=== PATIENT | female | born 1975 | race Caucasian/White ===

== ENCOUNTER → 2020-10-18 09:59 | Outpatient (BNVA) | payer OTHER, SELFPAY | PROVIDERS: PCP Nurse Practitioner Family; Visit Provider Orthopaedic Surgery | DX: R20.0 Anesthesia of skin (principal); R20.2 Paresthesia of skin | CPT/HCPCS: 99202 ==

== ENCOUNTER 2020-10-20 10:02 | Outpatient (REF) | payer OTHER, SELFPAY ==
--- NOTE | 2020-10-20 13:44 | EMG_ITS ---
HISTORY OF PRESENT ILLNESS: This is a 44-year-old woman with bilateral hand pain and numbness with the right being worse than the left, that has been going on for 2 or 3 months. She has no other medical problems and takes no medications. PHYSICAL EXAMINATION: On examination, she is alert and oriented with normal intellectual functions. Cranial nerves II through XII are normal. Muscle tone and strength are normal in all 4 extremities. No Tinel or Phalen sign. IMPRESSION: Rule out carpal tunnel syndrome. Nerve conduction EMG study: Early carpal tunnel syndrome on the right, otherwise normal study. Normal EMG of the right C7-T1 innervated muscles. MD FRIDA Leon/KEELY / [id number]
== END 2020-10-20 10:03 | disposition home or self-care (01) ==
LOC: HO.NEURO 10:02
PROVIDERS: PCP General Practice; Visit Provider General Practice
DX: G56.03 Carpal tunnel syndrome, bilateral upper limbs (principal)
CPT/HCPCS: 95860

== ENCOUNTER → 2020-10-28 12:26 | Outpatient (BNVA) | payer OTHER, SELFPAY | PROVIDERS: PCP Nurse Practitioner Family; Visit Provider Orthopaedic Surgery | DX: G56.01 Carpal tunnel syndrome, right upper limb (principal) | CPT/HCPCS: 99212 ==

== ENCOUNTER 2020-10-28 13:17 | Outpatient (REF) | payer OTHER, SELFPAY | END 2020-10-28 13:18 | disposition home or self-care (01) | LOC: HO.LAB 13:17 | PROVIDERS: Visit Provider Internal Medicine | DX: Z20.822 Contact with and (suspected) exposure to COVID-19 (principal) | CPT/HCPCS: 36415; C9803; U0003 ==

== ENCOUNTER 2021-05-16 15:27 | Outpatient (REF) | payer OTHER, SELFPAY ==
--- NOTE | ~2021-05-16 | MM_ITS ---
EXAMINATION: MM SCREENING DIGITAL BREAST TOMOSYNTHESIS, BILATERAL CLINICAL INFORMATION: Screening. Asymptomatic. The lifetime risk of breast cancer based on the Tyrer-Cuzick Model is 10%. COMPARISON: Mammography: 01/18/2019, 03/15/2017, 01/24/2016, 01/13/2016 TECHNIQUE: Digital breast tomosynthesis is performed in both the craniocaudal and mediolateral oblique views along with computer-aided detection (CAD). Synthesized 2D images are generated from the tomosynthesis. FINDINGS: There are scattered areas of fibroglandular density (ACR BI-RADS breast composition Category b). There are no significant masses, abnormal calcifications, or other abnormalities. Parenchymal pattern is similar to prior studies. No developing density. The axilla and skin contours are unremarkable. MM/MM tomosynthesis screening BI IMPRESSION: No mammographic evidence of malignancy. ASSESSMENT: BI-RADS 1: Negative RECOMMENDATION: Routine annual mammography screening. This patient's information was entered into a reminder system with a target due date for their next mammogram.
== END 2021-05-16 15:28 | disposition home or self-care (01) ==
LOC: HO.MAMMO 15:27
PROVIDERS: Visit Provider General Practice
DX: Z12.31 Encounter for screening mammogram for malignant neoplasm of breast (principal)
CPT/HCPCS: 77063; 77067

== ENCOUNTER 2021-06-02 15:54 | Outpatient (REF) | payer OTHER, SELFPAY ==
--- NOTE | ~2021-06-02 | US_ITS ---
EXAMINATION: US PELVIS CLINICAL INFORMATION: Heavy bleeding. Please evaluate for polyps. COMPARISON: None TECHNIQUE: Ultrasound of the pelvis is performed using both transabdominal and transvaginal transducers along with Doppler. Transvaginal imaging is performed due to inadequate visualization transabdominally. FINDINGS: The uterus is anteverted and anteflexed measuring 11.8 cm in length, 5.2 cm in AP and 7.6 cm in transverse dimension. The endometrial thickness is 2.0 cm. The uterus is homogeneous in echotexture. There are small anechoic nabothian cysts in the cervix. The right ovary measures 3.8 x 2.1 x 3.8 cm and volume 15.9 mL volume. It appears unremarkable. The left ovary measures 2.7 x 2.3 x 1.9 cm and volume 6.2 mL. It appears unremarkable. Both ovaries are seen transabdominally. There is no free fluid in the cul-de-sac. US/US pelvic and transvaginal IMPRESSION: Small nabothian cysts in the cervix. Mild thickness of the endometrium measuring 2.0 cm. Otherwise the uterus is unremarkable.
== END 2021-06-02 15:55 | disposition home or self-care (01) ==
LOC: HO.US 15:54
PROVIDERS: Visit Provider General Practice
DX: N88.9 Noninflammatory disorder of cervix uteri, unspecified (principal)
CPT/HCPCS: 76830; 76856

== ENCOUNTER → 2021-06-15 16:06 | Outpatient (REF) | payer OTHER, SELFPAY | LOC: HO.SL 16:06 | PROVIDERS: PCP General Practice; Visit Provider General Practice | DX: G47.9 Sleep disorder, unspecified (principal) | CPT/HCPCS: 95806 ==

== ENCOUNTER 2021-08-18 09:35 | Outpatient (REF) | payer OTHER, SELFPAY | END 2021-08-18 09:36 | disposition home or self-care (01) | LOC: HO.LAB 09:35 | PROVIDERS: PCP General Practice; Visit Provider Obstetrics & Gynecology | DX: N88.9 Noninflammatory disorder of cervix uteri, unspecified (principal) | CPT/HCPCS: 57500; 88305 ==

== ENCOUNTER → 2021-08-25 13:32 | Outpatient (BNVA) | payer OTHER, SELFPAY | PROVIDERS: PCP General Practice; Visit Provider Surgery Vascular Surgery | DX: I83.11 Varicose veins of right lower extremity with inflammation (principal) | CPT/HCPCS: 99202 ==

== ENCOUNTER → 2021-09-12 10:47 | Outpatient (BNVA) | payer OTHER, SELFPAY | PROVIDERS: PCP General Practice; Visit Provider Obstetrics & Gynecology | DX: N88.9 Noninflammatory disorder of cervix uteri, unspecified (principal) | CPT/HCPCS: 99212 ==

== ENCOUNTER 2021-09-13 08:10 | Outpatient (REF) | payer OTHER, SELFPAY ==
--- NOTE | ~2021-09-13 | US_ITS ---
EXAMINATION: BILATERAL LOWER EXTREMITY VENOUS ULTRASOUND (Reflux Exam) CLINICAL INDICATION: This a 45-year-old female with venous insufficiency and reflux. Varicose veins. COMPARISON: None. TECHNIQUE: Color flow triplex imaging and compression Doppler was performed to evaluate both the deep and the superficial systems bilaterally. To evaluate the superficial system, the examination was performed in the upright position. Color-flow Doppler ultrasound and compression ultrasound were utilized. In addition, maneuvers were utilized to demonstrate reflux. FINDINGS: 1. DEEP VENOUS ULTRASOUND OF THE RIGHT LOWER EXTREMITY: Common Femoral Vein: Compressible, normal respiratory variation and augmented flow. Femoral vein: Compressible, normal color flow and augmentation. Popliteal Vein: Compressible, normal augmentation. Deep Reflux: There is no evidence of reflux in the deep system in either the common femoral vein or the popliteal vein. . There is no evidence of a Dobson's cyst. 2. SUPERFICIAL ULTRASOUND WITH DOPPLER OF RIGHT LOWER EXTREMITY GREAT SAPHENOUS VEIN: Saphenofemoral junction: 0.6 cm. There is no reflux. Mid thigh: 0.4 cm. There is no reflux. Above knee: 0.3 cm. There is no reflux. Below knee: 0.2 cm. There is no reflux. Mid calf: 0.3 cm. The reflux time is 2356 ms. Ankle: 0.3 cm. The reflux time is 2900 ms. GSV REFLUX: There is isolated distal calf reflux. There is no reflux at the junction. DUPLICATED GREAT SAPHENOUS VEIN: There is a 0.3 cm located lateral great saphenous vein without evidence of reflux. SMALL SAPHENOUS VEIN: Upper: 0.1 cm Lower: 0.1 cm SSV REFLUX: No evidence of reflux. VEIN OF GIACOMINI: None Imaged. PERFORATORS: There are 0.2 cm distal thigh and knee perforators without reflux. VARICOSITIES: There are varicosities which measure 0.1 cm and 0.2 cm seen in the thigh and popliteal fossa and chin. There is greater than 3 seconds of reflux in these varicose veins. 3. DEEP VENOUS ULTRASOUND OF THE LEFT LOWER EXTREMITY: Common Femoral Vein: Compressible, normal respiratory variation and augmented flow. Femoral vein: Compressible, normal color flow and augmentation. Popliteal Vein: Compressible, normal augmentation. Deep Reflux: There is no evidence of reflux in the deep system in either the common femoral vein or the popliteal vein. There is no evidence of a Dobson's cyst. 4. SUPERFICIAL ULTRASOUND WITH DOPPLER OF LEFT LOWER EXTREMITY GREAT SAPHENOUS VEIN: Saphenofemoral junction: 0.5 cm. There is no reflux. Mid thigh: 0.3 cm. There is no reflux. Above knee: 0.3 cm. There is no reflux. Below knee: 0.2 cm Mid calf: 0.3 cm Ankle: 0.3 cm GSV REFLUX: There is a short segment of isolated reflux at the knee. Centrally, there is no significant reflux in the left great saphenous vein. DUPLICATED GREAT SAPHENOUS VEIN: There is a duplicated medial 0.4 cm great saphenous vein without reflux. SMALL SAPHENOUS VEIN: Upper: 0.2 cm Lower: Not seen. SSV REFLUX: No evidence of reflux. VEIN OF GIACOMINI: None Imaged. PERFORATORS: There is a 0.2 cm vegetable buncher at the knee without reflux. VARICOSITIES: None Imaged US/US venous duplex LE BI IMPRESSION: 1. There are bilateral great saphenous veins which appear patent but without reflux at the saphenofemoral junction or within the thigh. 2. There are bilateral patent small saphenous veins without evidence of reflux. 3. There are right lower extremity varicose veins with greater than 3 seconds of reflux. However, these varicose veins measure 0.2 cm or less.
== END 2021-09-13 08:11 | disposition home or self-care (01) ==
LOC: HO.US 08:10
PROVIDERS: PCP General Practice; Visit Provider Surgery Vascular Surgery
DX: I83.11 Varicose veins of right lower extremity with inflammation (principal)
CPT/HCPCS: 93970

== ENCOUNTER → 2021-09-22 13:47 | Outpatient (BNVA) | payer OTHER, SELFPAY | PROVIDERS: PCP General Practice; Referring Provider General Practice; Visit Provider Surgery Vascular Surgery | DX: I83.11 Varicose veins of right lower extremity with inflammation (principal) | CPT/HCPCS: 99212 ==

== ENCOUNTER → 2021-10-17 09:36 | Outpatient (BNVA) | payer OTHER, SELFPAY | PROVIDERS: Visit Provider Obstetrics & Gynecology | DX: N88.9 Noninflammatory disorder of cervix uteri, unspecified (principal) | CPT/HCPCS: 99212 ==

== ENCOUNTER 2021-10-21 10:14 | Day surgery (SDC) | payer OTHER, SELFPAY ==
--- NOTE | 2021-10-20 12:27 | HO.ANESPROP2 ---
Documented by User: Amy De Jesus NP 10/20/21 12:32 HPI - Anesthesia Eval Consult details Narrative: 45yo F for LEEP PMFSH Active Problems Active Problems: All Active Problems (Updated 09/12/21 @ 11:16 by Gideon Muñiz MD) Varicose veins of right lower extremity with inflammation (Acute) Cervical lesion (Acute) Carpal tunnel syndrome of right wrist (Acute) Numbness and tingling in both hands (Acute) Past Medical History Medical History (Updated 10/21/21 @ 10:53 by Clare Ha RN) Anxiety Depressed Hypertension Sleep apnea Varicose veins of both lower extremities Family History Family History Paternal Aunt Breast CA Surgical History Surgical History Tubal ligation status Social History Social History Patient Tobacco Use Status: Never used Tobacco Use of substances other than those prescribed or required for medical reasons: No Are you DNR?: No Advance Directives: No Advance Directives Information Provided: Yes Current occupational status: employed 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 Allergies Allergy/AdvReac Type Severity Reaction Status Date / Time No Known Allergies Allergy Verified 09/22/21 14:07 Home Medications Medication Instructions Recorded Confirmed Last Taken Type divalproex 125 mg tablet,delayed 125 mg PO TID 10/18/20 Unknown History release (Depakote) tramadol 300 mg capsule 24 300 mg PO DAILY 10/18/20 Unknown History hr,extended release zolpidem 5 mg tablet (Ambien) 5 mg PO BEDTIME PRN 10/18/20 Unknown History bupropion HCl 200 mg tablet,12 hr 200 mg PO BID 08/18/21 Unknown History sustained-release divalproex 500 mg tablet,extended 500 mg PO DAILY 08/18/21 Unknown History release 24 hr ferrous sulfate 325 mg (65 mg 325 mg PO BID 08/18/21 Unknown History iron) tablet zolpidem 10 mg tablet 10 mg PO BEDTIME PRN 08/18/21 Unknown History Exam Exam Date and Time: October 20, 2021 1227 Assessment and Plan Assessment Anesthesia Assessment: Chart Reviewed Documented by User: Og Sami 10/21/21 11:52 HPI - Anesthesia Eval Consult details Narrative: 45yo F for LEEP ABHI , PMFSH Past Medical History Medical History (Updated 10/21/21 @ 10:53 by Clare Ha RN) Anxiety Depressed Hypertension Sleep apnea Varicose veins of both lower extremities Family History Family History Paternal Aunt Breast CA Family history of problems with anesthesia: No Surgical History Surgical History Tubal ligation status History of Problems with Anesthesia: No Social History Social History Patient Tobacco Use Status: Never used Tobacco Use of substances other than those prescribed or required for medical reasons: No Are you DNR?: No Advance Directives: No Advance Directives Information Provided: Yes Current occupational status: employed 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 Allergies Allergy/AdvReac Type Severity Reaction Status Date / Time No Known Allergies Allergy Verified 09/22/21 14:07 Home Medications Medication Instructions Recorded Confirmed Last Taken Type divalproex 125 mg tablet,delayed 125 mg PO TID 10/18/20 Unknown History release (Depakote) tramadol 300 mg capsule 24 300 mg PO DAILY 10/18/20 Unknown History hr,extended release zolpidem 5 mg tablet (Ambien) 5 mg PO BEDTIME PRN 10/18/20 Unknown History bupropion HCl 200 mg tablet,12 hr 200 mg PO BID 08/18/21 Unknown History sustained-release divalproex 500 mg tablet,extended 500 mg PO DAILY 08/18/21 Unknown History release 24 hr ferrous sulfate 325 mg (65 mg 325 mg PO BID 08/18/21 Unknown History iron) tablet zolpidem 10 mg tablet 10 mg PO BEDTIME PRN 08/18/21 Unknown History Exam Airway Mallampati Class: II TM Dist: >3cm Neck ROM: Full Loose/Missing/Broken Teeth: Yes Heart: rrr Lungs: bl breath sounds Assessment and Plan Final Anesthetic Review Family History of Problems with Anesthesia: No History of Problems with Anesthesia: No NPO: Yes ASA Class: III Final Preanesthetic Review: Jose Risks/Benef Reviewed Patient Risk: Intermediate Procedure Risk: Intermediate Anesthetic Plan Anesthetic Plan: GA Disposition: Standard PACU
[2021-10-21] VITALS (7 sets, daily range): BP systolic 134–154; BP diastolic 73–91; PULSE 65–88; RESP 12–18; TEMP 36.5; O2SAT 98–100; BMI 38.9
[2021-10-21 10:37] LABS: UPreg QC Valid YES; Urine Pregnancy NEGATIVE (NEGATIVE)
[2021-10-21] MEDS: Lactated Ringers 1,000 ML 100 ML IVCONT (11:10)
--- NOTE | 2021-10-21 11:29 | MHC.SHP ---
Pre-Procedural Eval Section A Date of Service: 10/21/21 The patient is an INPATIENT: No Changes since office visit: No Cold of Flu in the past 2 weeks, No New Medical Problems, No Changes in Medication and No Patient answered all questions The History & Physical has been completed within 30 days and I have reviewed it.: Yes Section B Chief Complaint: cervical lesions Allergies: Allergies Allergy/AdvReac Type Severity Reaction Status Date / Time No Known Allergies Allergy Verified 09/22/21 14:07 Plan Diagnosis/Plan: Unchanged I have reviewed the history and physical and performed a pertinent physical examination on my patient. No changes have occurred unless specified.
--- NOTE | 2021-10-21 12:46 | PM.OP ---
Brief Operative Note Date of Service: 10/21/21 Pre-op diagnosis: Abnormal cervix Post-op diagnosis: same Procedure: Loop electrical excision procedure Surgeon: Gideon Muñiz MD Anesthesia: GLMA Was an Garment Turner used for this Procedure?: No Estimated blood loss (mL): 0 Pathology: other (Anterior and posterior cervical lip) Condition: stable Disposition: same day
--- NOTE | 2021-10-21 12:47 | W.PM.OPN ---
Operative Note Operative Note Date of Service: 10/21/21 Narrative: Preop diagnosis: Abnormal cervix Operation: LEEP Post op diagnosis: same Anesthesia: paracervical block, IV sedation Complications: none Pathology: Anterior and Posterior cervical lip QBL: minimal Procedure: The patient was put in the dorsal lithotomy position, was prepped and draped in the usual sterile fashion. A sterile speculum was inserted inside the patient vagina. Using Lugol solution the cervix with Dyed with Lugol solution to identifiy the abnormal demarcating line. 10 cc of Marcaine0.5% with epinephrine were given at 2,4 , 8, and 10 o'clock. Using a medium-size loop wire, the anterior cervical lip was excised followed by the posterior cervical lip. Hemostasis was assured using cautery and Monsel solution. All instruments were taken out of the patient's vaginal cavity. the patient tolerated the procedure well and was discharged home with the following instructions: call if temperature is above 100.4, vaginal bleeding, abdominal pain or nausea or vomiting. Follow-up in the office in 2 weeks for postop visit
== END 2021-10-21 14:22 | disposition home or self-care (01) ==
PROVIDERS: PCP General Practice; Visit Provider Obstetrics & Gynecology
PROC: 0UBC7ZZ Excision of Cervix, Via Natural or Artificial Opening (ICD-10-PCS; CPT 57522; principal; 2021-10-21 13:00)
DX: N88.8 Other specified noninflammatory disorders of cervix uteri (principal); F41.8 Other specified anxiety disorders; I10 Essential (primary) hypertension; G47.30 Sleep apnea, unspecified; Z98.51 Tubal ligation status; Z79.899 Other long term (current) drug therapy
CPT/HCPCS: 57522; 81025; 88307; J1100; J2250; J2405; J3010

== ENCOUNTER → 2021-11-03 12:02 | Outpatient (BNVA) | payer OTHER, SELFPAY | PROVIDERS: Visit Provider Obstetrics & Gynecology | DX: N88.9 Noninflammatory disorder of cervix uteri, unspecified (principal); Z98.890 Other specified postprocedural states | CPT/HCPCS: Q3014 ==

== ENCOUNTER → 2021-11-04 12:28 | Outpatient (BNVA) | payer OTHER, SELFPAY | PROVIDERS: Visit Provider Surgery Vascular Surgery | DX: I83.11 Varicose veins of right lower extremity with inflammation (principal) | CPT/HCPCS: 37765 ==

== ENCOUNTER → 2021-11-17 14:56 | Outpatient (BNVA) | payer OTHER, SELFPAY | PROVIDERS: Visit Provider Surgery Vascular Surgery | DX: I83.11 Varicose veins of right lower extremity with inflammation (principal); Z98.890 Other specified postprocedural states | CPT/HCPCS: 99212 ==

== ENCOUNTER → 2022-05-03 22:31 | Outpatient (REF) | payer OTHER, SELFPAY | LOC: HO.SL 22:31 | PROVIDERS: PCP General Practice; Visit Provider Nurse Practitioner | DX: G47.33 Obstructive sleep apnea (adult) (pediatric) (principal); G47.61 Periodic limb movement disorder | CPT/HCPCS: 95810 ==

== ENCOUNTER 2022-05-19 12:56 | Emergency (ER) | payer OTHER, SELFPAY ==
--- NOTE | ~2022-05-19 | XR_ITS ---
EXAMINATION: XR CHEST CLINICAL INFORMATION: Cough. Chest pain COMPARISON: None TECHNIQUE: Frontal view of the chest was obtained. FINDINGS: No significant abnormality is noted involving the heart, lungs, mediastinum, bony thorax or soft tissues. XR/XR chest 1V IMPRESSION: Unremarkable examination.
[2022-05-19 13:04] VITALS: BP 133/94; PULSE 81; RESP 18; TEMP 37.1; O2SAT 98; BMI 39.6
--- NOTE | 2022-05-19 13:08 | ECG_ITS ---
Test Reason : chest pain Blood Pressure : / mmHG Vent. Rate : 083 BPM Atrial Rate : 083 BPM P-R Int : 156 ms QRS Dur : 078 ms QT Int : 372 ms P-R-T Axes : 048 016 007 degrees QTc Int : 437 ms Normal sinus rhythm Normal ECG When compared with ECG of 02-JAN-2019 18:24, No significant change was found Referred By: Generic ED Physician Electronically Signed By:KHANH HEARD MD
[2022-05-19 13:23] LABS: MANUAL DIFF FLAG NO
[2022-05-19 13:28] LABS: Basophils Percent Auto 0.4 % (0-2); Eosinophils Absolute Auto 0.1 X10*3/uL (0.0-0.4); Eosinophils Percent Auto 1.4 % (0-4); Hemoglobin 11.5 g/dl (12.0-16.0); Imm Gran Abs Auto 0.03 X10*3/uL (0.00-0.03); Imm Gran Pct Auto 0.4 % (0.0-0.4); Lymphocytes Absolute Auto 2.1 X10*3/uL (1.2-4.9); Lymphocytes Percent Auto 26.8 % (20-40); Mean Corpuscular HGB Conc 32.9 g/dl (31.0-35.0); Mean Corpuscular Hemoglobin 25.3 pg (27.0-33.0); Mean Corpuscular Volume 77.1 fL (80.0-98.0); Mean Platelet Volume 10.7 fL (9.4-12.3); Monocytes Absolute Auto 0.4 X10*3/uL (0.1-1.2); Monocytes Percent Auto 5.6 % (2-11); Neutrophils Absolute Auto 5.2 x10*3/uL (2.0-8.3); Neutrophils Percent Auto 65.4 % (45-73); Platelet Count 351 X10*3/uL (160-400); Red Blood Count 4.54 X10*6/uL (4.20-5.50); Red Cell Distribution Width 14.9 % (11.0-16.0); White Blood Count 7.9 X10*3/uL (4.8-10.8)
[2022-05-19 13:39] LABS: Anion Gap 13 (12-20); Blood Urea Nitrogen 9 mg/dL (9-16); Calcium 8.6 mg/dL (8.4-10.2); Carbon Dioxide 23 mmol/L (22-29); Chloride 109 mmol/L (96-108); Creatinine Clr Calc Pharmacy 89.4; Estimated Glomerular Filt Rate > 60; Glucose Random 91 mg/dL (60-115); Potassium 3.9 mmol/L (3.3-5.1); Sodium 141 mmol/L (135-145)
[2022-05-19 13:46] LABS: Troponin-I High Sensitivity < 3.5 ng/L (<3.5-17.0)
[2022-05-19 14:03] LABS: Strep A Nucleic Acid Negative (Negative)
[2022-05-19 14:16] LABS: COVID-19 Test Negative (Negative); IDNOW Serial# 16C4AD1C
[2022-05-19 14:51] VITALS: BP 134/86; PULSE 90; RESP 18; TEMP 36.9; O2SAT 98
--- NOTE | 2022-05-19 14:51 | ED_ITS ---
HPI - Chest Pain General Chief Complaint: Chest Pain Stated Complaint: headaches/chest pain/fever/SOB Time Seen by Provider: 05/19/22 14:37 Source: patient Mode of arrival: ambulatory Limitations: no limitations History of Present Illness HPI narrative: Patient presents emergency department for evaluation of upper respiratory symptoms x4 days. She states that she was seen 3 days ago at a walk-in clinic in tested negative for COVID-19, influenza, and strep. She initially was experiencing sore throat, tactile fevers, productive cough, and frontal headache. Over the past 2 days she has developed intermittent chest pain, reproducible to touch, and with coughing, and mild shortness of breath. 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 Denies chills, dizziness, lightheadedness, vision changes, neck pain, palpitations, dyspnea on exertion, nausea vomiting, abdominal pain, generalized weakness, numbness or tingling of the extremities. Related Data Home Medications Medication Instructions Recorded Confirmed divalproex 125 mg tablet,delayed 125 mg PO TID 10/18/20 release (Depakote) tramadol 300 mg capsule 24 300 mg PO DAILY 10/18/20 hr,extended release zolpidem 5 mg tablet (Ambien) 5 mg PO BEDTIME PRN 10/18/20 bupropion HCl 200 mg tablet,12 hr 200 mg PO BID 08/18/21 sustained-release divalproex 500 mg tablet,extended 500 mg PO DAILY 08/18/21 release 24 hr ferrous sulfate 325 mg (65 mg 325 mg PO BID 08/18/21 iron) tablet zolpidem 10 mg tablet 10 mg PO BEDTIME PRN 08/18/21 Previous Rx's Medication Instructions Recorded guaifenesin 600 mg tablet, 600 mg PO BID 5 days #10 tabs 05/19/22 extended release 12 hr (Mucinex) Allergies Allergy/AdvReac Type Severity Reaction Status Date / Time No Known Allergies Allergy Verified 05/19/22 13:04 Review of Systems Review of Systems: Constitutional: Positive fever. Positive chills. No weakness. Positive fatigue. ENT/ Mouth: No Ear Pain, no Nasal Congestion, positive sore throat, positive Rhinorrhea, No Swallowing Difficulty Skin: No rash or itching. Cardiovascular: Positive chest pain. No palpitations. Respiratory: Positive shortness of breath. Positive cough. Positive sputum production. Gastrointestinal: No nausea. No vomiting. No diarrhea. No abdominal pain. Genitourinary: No burning micturition. No urinary frequency. Neurologic: No headache. No dizziness. No syncope. No numbness or tingling in the extremities. Musculoskeletal: No muscle pain. No back pain. No joint pain or stiffness. Yes all other systems are reviewed and are negative PMFSH Past Medical History Attestation statement: The following information was validated with the patient. 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 Hypertensive? Heart rate normal.? Respiration rate normal. Temperature normal.? Oxygen saturation normal. Appearance: Alert.?Oriented to person, place and time. No acute distress.?Normal affect. Eyes: Pupils equal, round and reactive to light.? ENT: TM normal bilaterally. Pharynx normal. No tonsillar hypertrophy. Frontal sinus tenderness bilaterally Neck: Normal inspection.? Neck supple.??No cervical adenopathy CVS: Heart sounds normal. Normal heart rate and rhythm.? Pulses normal.?? Respiratory: No respiratory distress.? Lung sounds clear to auscultation bilaterally. Chest wall tenderness with palpation. Abdomen: Soft and non-tender. Normoactive bowel sounds. Skin: Skin warm and dry.? Normal skin color.? ? Extremities: No lower extremity edema.? Neuro: Moves all extremities spontaneously. Sensation intact bilaterally. No motor deficits. Ambulates with normal steady gait. Course Course Course Narrative: Patient is a 46-year-old female with past medical history of hypertension, presenting for evaluation of upper respiratory symptoms with chest pain. COVID- 19 testing negative. Group a strep testing negative. Physical exam findings notable for frontal maxillary sinus tenderness with palpation, diffuse chest wall tenderness with palpation. At this time history and physical exam not consistent with ACS/PE, PERC negative, HEART score 2. CBC reveals a microcytic anemia consistent with baseline, no leukocytosis. CMP unremarkable. Troponin <3.5, an EKG revealing normal sinus rhythm with no acute ischemic findings. CXR Reveals no acute cardiopulmonary process. Well-appearing, nontoxic, afebrile, no tachycardia or tachypnea/hypoxia. Symptoms most consistent with upper respiratory infection, and sinusitis, advised patient she may continue taking antibiotics as previously prescribed. Speaking clear full sentences, ambulatory with steady gait. Discussed conservative treatment including rest, hydration, Tylenol/ibuprofen as needed for fever and body aches, saline nasal spray, humi difier, [id number] cold medication. Advised to follow-up with primary care provider as needed, discussed reasons to return back to the emergency department. All questions were answered. Patient discharged home in stable condition. MDM - Chest Pain Medical Records Data Attestation: I reviewed the patient's medical records. Lab Data Attestation: I reviewed the patient's lab results. Result diagrams: 05/19/22 13:16 05/19/22 13:16 Labs: Lab Results 05/19/22 05/19/22 05/19/22 Range/Units 13:16 13:16 13:16 WBC 7.9 (4.8-10.8) X10*3/uL RBC 4.54 (4.20-5.50) X10*6/uL Hgb 11.5 L (12.0-16.0) g/dl Hct 35.0 L (37.0-47.0) % MCV 77.1 L (80.0-98.0) fL MCH 25.3 L (27.0-33.0) pg MCHC 32.9 (31.0-35.0) g/dl RDW 14.9 (11.0-16.0) % Plt Count 351 (160-400) X10*3/uL MPV 10.7 (9.4-12.3) fL Immature Gran % (Auto) 0.4 (0.0-0.4) % Neut % (Auto) 65.4 (45-73) % Lymph % (Auto) 26.8 (20-40) % [place] % (Auto) 5.6 (2-11) % Eos % (Auto) 1.4 (0-4) % Baso % (Auto) 0.4 (0-2) % Lymph # (Auto) 2.1 (1.2-4.9) X10*3/uL [place] # (Auto) 0.4 (0.1-1.2) X10*3/uL Eos # (Auto) 0.1 (0.0-0.4) X10*3/uL Baso # (Auto) 0.0 (0.0-0.2) X10*3/uL Abs Immat Gran (auto) 0.03 (0.00-0.03) X10*3/uL Absolute Neuts (auto) 5.2 (2.0-8.3) x10*3/uL Absolute Nucleated RBC 0.000 (0.0-0.012) X10*3/uL Nucleated RBC % (auto) 0.0 (0.0-0.2) /100WBC Sodium 141 (135-145) mmol/L Potassium 3.9 (3.3-5.1) mmol/L Chloride 109 H (96-108) mmol/L Carbon Dioxide 23 (22-29) mmol/L Anion Gap 13 (12-20) BUN 9 (9-16) mg/dL Creatinine 0.96 (0.5-1.4) mg/dL Estim Creat Clear Calc 89.4 Estimated GFR > 60 Random Glucose 91 (60-115) mg/dL Calcium 8.6 (8.4-10.2) mg/dL Total Bilirubin 1.1 H (0.0-1.0) mg/dL Direct Bilirubin 0.4 (0.0-0.5) mg/dL AST 16 (5-31) U/L ALT 20 (0-31) U/L Alkaline Phosphatase 72 (39-117) U/L Troponin I High Sens < 3.5 (<3.5-17.0) ng/L Total Protein 7.3 (6.5-8.0) g/dL Albumin 3.9 (3.5-5.0) g/dL Lipase 17 (8-78) U/L COVID-19 ([facility]) (Negative) COVID-19 Clin Com S. pyogenes GrpA ALESIA (Negative) 05/19/22 05/19/22 Range/Units 13:50 13:50 WBC (4.8-10.8) X10*3/uL RBC (4.20-5.50) X10*6/uL Hgb (12.0-16.0) g/dl Hct (37.0-47.0) % MCV (80.0-98.0) fL MCH (27.0-33.0) pg MCHC (31.0-35.0) g/dl RDW (11.0-16.0) % Plt Count (160-400) X10*3/uL MPV (9.4-12.3) fL Immature Gran % (Auto) (0.0-0.4) % Neut % (Auto) (45-73) % Lymph % (Auto) (20-40) % [place] % (Auto) (2-11) % Eos % (Auto) (0-4) % Baso % (Auto) (0-2) % Lymph # (Auto) (1.2-4.9) X10*3/uL [place] # (Auto) (0.1-1.2) X10*3/uL Eos # (Auto) (0.0-0.4) X10*3/uL Baso # (Auto) (0.0-0.2) X10*3/uL Abs Immat Gran (auto) (0.00-0.03) X10*3/uL Absolute Neuts (auto) (2.0-8.3) x10*3/uL Absolute Nucleated RBC (0.0-0.012) X10*3/uL Nucleated RBC % (auto) (0.0-0.2) /100WBC Sodium (135-145) mmol/L Potassium (3.3-5.1) mmol/L Chloride (96-108) mmol/L Carbon Dioxide (22-29) mmol/L Anion Gap (12-20) BUN (9-16) mg/dL Creatinine (0.5-1.4) mg/dL Estim Creat Clear Calc Estimated GFR Random Glucose (60-115) mg/dL Calcium (8.4-10.2) mg/dL Total Bilirubin (0.0-1.0) mg/dL Direct Bilirubin (0.0-0.5) mg/dL AST (5-31) U/L ALT (0-31) U/L Alkaline Phosphatase (39-117) U/L Troponin I High Sens (<3.5-17.0) ng/L Total Protein (6.5-8.0) g/dL Albumin (3.5-5.0) g/dL Lipase (8-78) U/L COVID-19 ([facility]) Negative (Negative) COVID-19 Clin Com See Note S. pyogenes GrpA ALESIA Negative (Negative) ECG Data ECG #1: Attestation: I personally reviewed and interpreted this ECG as follows: ECG interpretation date: 05/19/22 Prior ECG tracings: available for review Interpretation: Rate: 83 Rhythm:? Normal sinus rhythm Saline:? Normal Normal P waves.? Normal LIN.?? Normal QRS complex.?? ST T wave :??No ST elevation, no ST depression, no T-wave inversion qTC: 437 prior studies:? December 2018 The study has been interpreted contemporaneously by me. Discharge Plan Discharge Clinical Impression: Acute upper respiratory infection Patient Disposition: Home, Self-Care Instructions: Upper Respiratory Infection (ED) Additional Instructions: Be sure to rest, stay well hydrated drinking plenty of fluids, eat small frequent meals. Tylenol/ibuprofen can be used as needed for fever/pain. Urzy-pow-xbrsubp cold medications may be helpful as well for symptoms. Saline nasal spray, humidifier may be helpful for nasal congestion. May continue taking the azithromycin your previously prescribed. You have been given a new prescription for Mucinex as well. You may return to the emergency department with any new or worsening symptoms or concerns. Follow-up with your primary care provider as needed. Prescriptions: New guaifenesin [Mucinex] 600 mg tablet extended release 12hr 600 mg PO BID 5 Days Qty: 10 0RF No Action zolpidem [Ambien] 5 mg tablet 5 mg PO BEDTIME PRN divalproex [Depakote] 125 mg tablet,delayed release (DR/EC) 125 mg PO TID tramadol 300 mg capsule,ER biphase 24 hr 17-83 300 mg PO DAILY ferrous sulfate 325 mg (65 mg iron) tablet 325 mg PO BID zolpidem 10 mg tablet 10 mg PO BEDTIME PRN bupropion HCl 200 mg tablet sustained-release 12 hr 200 mg PO BID divalproex 500 mg tablet extended release 24 hr 500 mg PO DAILY Interventions: ED Discharge Assessment Last Done: 05/19/22 15:40 Discharge Date/Time: 05/19/22 15:41
[2022-05-19 15:03] LABS: Alanine Aminotransferase 20 U/L (0-31); Albumin Level 3.9 g/dL (3.5-5.0); Alkaline Phosphatase 72 U/L (39-117); Aspartate Amino Transferase 16 U/L (5-31); Bilirubin Direct 0.4 mg/dL (0.0-0.5); Bilirubin Total 1.1 mg/dL (0.0-1.0); Lipase 17 U/L (8-78); Total Protein 7.3 g/dL (6.5-8.0)
== END 2022-05-19 15:41 | disposition home or self-care (01) ==
PROVIDERS: Nurse Practitioner Family; Emergency Provider Emergency Medicine; PCP General Practice
DX: J06.9 Acute upper respiratory infection, unspecified (principal); R07.89 Other chest pain; R51.9 Headache, unspecified; R50.9 Fever, unspecified; R06.02 Shortness of breath; Z20.822 Contact with and (suspected) exposure to COVID-19; Z79.899 Other long term (current) drug therapy
CPT/HCPCS: 36415; 71045; 80048; 80076; 83690; 84484; 85025; 87635; 87651; 93005; 99284

== ENCOUNTER 2022-06-09 11:27 | Outpatient (REF) | payer OTHER, SELFPAY ==
--- NOTE | ~2022-06-09 | MM_ITS ---
EXAMINATION: MM SCREENING DIGITAL BREAST TOMOSYNTHESIS, BILATERAL CLINICAL INFORMATION: Screening. Asymptomatic. The lifetime risk of breast cancer based on the Tyrer-Cuzick Model is 11%. COMPARISON: Mammography: 06/03/2021, 01/18/2019, 04/03/2017 TECHNIQUE: Digital breast tomosynthesis is performed in both the craniocaudal and mediolateral oblique views along with computer-aided detection (CAD). Synthesized 2D images are generated from the tomosynthesis. Additional left MLO view is provided. FINDINGS: There are scattered areas of fibroglandular density (ACR BI-RADS breast composition Category b). There are no significant masses, abnormal calcifications, or other abnormalities. Parenchymal pattern is similar to prior studies. There is no developing density or architectural abnormality. The axilla and skin contours are unremarkable. No significant changes. MM/MM tomosynthesis screening BI IMPRESSION: No mammographic evidence of malignancy. ASSESSMENT: BI-RADS 1: Negative RECOMMENDATION: Routine annual mammography screening. This patient's information was entered into a reminder system with a target due date for their next mammogram.
== END 2022-06-09 11:28 | disposition home or self-care (01) ==
LOC: HO.MAMMO 11:27
PROVIDERS: PCP General Practice; Visit Provider General Practice
DX: Z12.31 Encounter for screening mammogram for malignant neoplasm of breast (principal)
CPT/HCPCS: 77063; 77067

== ENCOUNTER → 2022-08-03 19:30 | Outpatient (REF) | payer OTHER, SELFPAY | LOC: HO.SL 19:30 | PROVIDERS: PCP General Practice; Visit Provider General Practice | DX: G47.33 Obstructive sleep apnea (adult) (pediatric) (principal) | CPT/HCPCS: 95811 ==

== ENCOUNTER 2022-11-07 10:09 | Outpatient (REF) | payer OTHER, SELFPAY ==
[2022-11-10 05:13] LABS: HPV mRNA E6/E7 rflx Not Detected (Not Detected)
== END 2022-11-07 10:10 | disposition home or self-care (01) ==
LOC: HO.LNP 10:09
PROVIDERS: PCP General Practice; Visit Provider Obstetrics & Gynecology
DX: Z01.419 Encounter for gynecological examination (general) (routine) without abnormal findings (principal); Z11.51 Encounter for screening for human papillomavirus (HPV)
CPT/HCPCS: 87624; 88142

== ENCOUNTER 2023-01-25 23:00 | Emergency (ER) | payer OTHER, SELFPAY ==
[2023-01-25 23:02] VITALS: BP 146/74; PULSE 61; RESP 18; TEMP 36.6; O2SAT 99; BMI 40.3
[2023-01-26] MEDS: Ketorolac Tromethamine 60 MG/2 ML VIAL IM (00:08)
--- NOTE | 2023-01-26 00:11 | ED_ITS ---
HPI - Dental/Oral General Chief complaint: Dental/Oral Stated complaint: tooth pain 4 days, no eating. high bp Time Seen by Provider: 01/25/23 23:54 Source: patient Mode of arrival: ambulatory Limitations: no limitations History of Present Illness HPI Narrative: Patient comes to the emergency room complaining of 5 days of dental pain. Four days ago she went to see her dentist, patient was told that she needs a root canal, started on amoxicillin and ibuprofen. Patient states that there was a delay with the pharmacy getting her antibiotics and she has only been taking them for 2 days. Patient states that ibuprofen does not work. Denies fever chills Related Data Home Medications Medication Instructions Recorded Confirmed divalproex 125 mg tablet,delayed 125 mg PO TID 10/18/20 release (Depakote) tramadol 300 mg capsule 24 300 mg PO DAILY 10/18/20 hr,extended release zolpidem 5 mg tablet (Ambien) 5 mg PO BEDTIME PRN 10/18/20 bupropion HCl 200 mg tablet,12 hr 200 mg PO BID 08/18/21 sustained-release divalproex 500 mg tablet,extended 500 mg PO DAILY 08/18/21 release 24 hr ferrous sulfate 325 mg (65 mg 325 mg PO BID 08/18/21 iron) tablet zolpidem 10 mg tablet 10 mg PO BEDTIME PRN 08/18/21 Previous Rx's Medication Instructions Recorded guaifenesin 600 mg tablet, 600 mg PO BID 5 days #10 tabs 05/19/22 extended release 12 hr (Mucinex) ketorolac 10 mg tablet 10 mg PO TID PRN pain 5 days #10 01/26/23 tabs oxycodone 5 mg tablet 5 mg PO BID PRN pain #7 tabs 01/26/23 Allergies Allergy/AdvReac Type Severity Reaction Status Date / Time No Known Allergies Allergy Verified 01/25/23 23:02 Review of Systems Review of Systems: Constitutional : No Weight loss, No Fever, No Chills, No Night Sweats, No Fatigue, No Malaise ENT/Mouth : Complaining of right mandibular pain, dental pain, No Hearing loss, No Ear Pain, No Nasal Congestion, No Sinus Pain, No Hoarseness, No sore throat, No Rhinorrhea, No Swallowing Difficulty Eyes: No Eye Pain, No Swelling, No Redness, No Foreign Body, No Discharge, No Vision Changes Cardiovascular : No Chest Pain, No SOB, No Dyspnea on Exertion, No Orthopnea, No Edema, No Palpitations Respiratory : No Cough, No Sputum, No Wheezing, No Smoke Exposure, No Dyspnea Gastrointestinal : No Nausea, No Vomiting, No Diarrhea, No Constipation, No abdominal Pain, No Hematochezia, No Melena Genitourinary : no irregular bleeding, No Dysuria, No Urinary Frequency, No Hematuria, No Urinary Incontinence, No Urgency, No Flank Pain, No Urinary Flow Changes, No Hesitancy Musculoskeletal : No joint pain, No Myalgias, No Joint Swelling Skin : No Skin Lesions, No rash Neuro : No Weakness, No Numbness, No Paresthesias, No Loss of Consciousness, No Dizziness, No Headache Psych : No Anxiety/Panic, No Depression, No SI/HI/AH/VH, No Social Issues, Heme/Lymph: No Bruising, No Bleeding,No Lymphadenopathy Endocrine : No Polyuria, No Polydipsia, No Temperature Intolerance PMFSH Past Medical History Medical History Anxiety Depressed History of LEEP (loop electrosurgical excision procedure) of cervix complicating Hypertension Sleep apnea Varicose veins of both lower extremities Surgical History Tubal ligation status Family History Family History Paternal Aunt Breast CA Social History Social History Alcohol intake: never Patient Tobacco Use Status: Never used Tobacco Advance Directives: No Advance Directives Information Provided: Yes Current occupational status: employed 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 Oriented X3. No acute distress. Eyes: Pupils equal, round and reactive to light. ENT: Pharynx normal. No visible abscess 2nd be drained, mild swelling to the right mandibular side. No pain under the tongue or other chin Neck: Normal inspection. Neck supple. No lymph nodes noted. No crepitus CVS: Normal heart rate and rhythm. Pulses normal. Normal S1 and S2 Respiratory: No respiratory distress. Breath sounds normal. No Wheezing. No rales Abdomen: Soft and nontender. No rigidity. No distention. Skin: Skin warm and dry. Normal skin color. Normal skin turgor. Extremities: No lower extremity edema. No Lacerations. No Rash Neuro: Oriented X 3. No motor deficit. No sensory deficit. Moving all extr emities. No slurred speech. CN 2 through 12 grossly intact Psych: calm, cooperative, normal affect Medications Administered Discontinued Medications Generic Name Dose Route Start Last Admin Trade Name Freq PRN Reason Stop Dose Admin Ketorolac Tromethamine 60 mg 01/26/23 00:01 01/26/23 00:08 Ketorolac Tromethamine 60 Mg/2 Ml Vial IM 01/26/23 00:02 60 mg ONCE ONE Administration Medical Decision Making Medical Decision Making [facility] Narrative: -patient is already on the correct antibiotic -patient was given 1 dose of IM Toradol, she will be prescribed p.o. Toradol and asked to discontinue taking ibuprofen. Oxycodone will be given only at bedtime for couple of days Differential Diagnosis Differential Diagnoses: The differential diagnosis associated with the presentation includes (Gingivitis, dental abscess, fractured tooth) Discharge Plan Discharge Clinical Impression: Toothache Patient Disposition: Home, Self-Care Instructions: Toothache (ED) Additional Instructions: Please follow-up with your primary care physician tomorrow. If you have any worsening or new symptoms, please return to the emergency room or call 911 Prescriptions: New ketorolac 10 mg tablet 10 mg PO TID PRN (Reason: pain) 5 Days Qty: 10 0RF oxycodone 5 mg tablet 5 mg PO BID PRN (Reason: pain) Qty: 7 0RF Rx Instructions: Partial Fill upon patient request. No Action guaifenesin [Mucinex] 600 mg tablet extended release 12hr 600 mg PO BID 5 Days Qty: 10 0RF zolpidem [Ambien] 5 mg tablet 5 mg PO BEDTIME PRN divalproex [Depakote] 125 mg tablet,delayed release (DR/EC) 125 mg PO TID tramadol 300 mg capsule,ER biphase 24 hr 17-83 300 mg PO DAILY ferrous sulfate 325 mg (65 mg iron) tablet 325 mg PO BID zolpidem 10 mg tablet 10 mg PO BEDTIME PRN bupropion HCl 200 mg tablet sustained-release 12 hr 200 mg PO BID divalproex 500 mg tablet extended release 24 hr 500 mg PO DAILY
== END 2023-01-26 00:20 | disposition home or self-care (01) ==
PROVIDERS: Emergency Provider Emergency Medicine
DX: K08.89 Other specified disorders of teeth and supporting structures (principal); Z79.899 Other long term (current) drug therapy
CPT/HCPCS: 96372; 99283; 99284; J1885

== ENCOUNTER → 2023-01-31 11:45 | Outpatient (BNVA) | payer OTHER, SELFPAY | PROVIDERS: Visit Provider Physician Assistant | DX: Z12.11 Encounter for screening for malignant neoplasm of colon (principal) | CPT/HCPCS: 99202 ==

== ENCOUNTER 2023-11-19 16:03 | Outpatient (REF) | payer OTHER, SELFPAY ==
[2023-11-21 21:48] LABS: Rubella IgG Antibody 3.88 Index
== END 2023-11-19 16:04 | disposition home or self-care (01) ==
LOC: HO.HHCL 16:03
PROVIDERS: Visit Provider General Practice
DX: Z00.00 Encounter for general adult medical examination without abnormal findings (principal)
CPT/HCPCS: 36415; 86735; 86762; 86765; 86787

== ENCOUNTER 2023-12-20 08:59 | Outpatient (AMB) | payer OTHER, SELFPAY ==
--- NOTE | 2023-12-20 09:00 | MHC.OFFVIS ---
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 No complaints. Last Pap/HPV was negative in 11/06, endometrial cells present Last Mammogram was BI-RADS 1 in 06/05 The patient had a consult with GI in 02/04 and is in the process of scheduling her screening colonoscopy [facility] Medical History History of LEEP (loop electrosurgical excision procedure) of cervix complicating Varicose veins of both lower extremities Depressed Anxiety Sleep apnea Hypertension Surgical History Tubal ligation status Family History Paternal Aunt Breast CA Social History Alcohol intake: never Patient Tobacco Use Status: Never used Tobacco Current occupational status: employed 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 Reproductive History Menstrual Age of Menarche: 12 Date of last menstrual period: 12/13/23 control method: permanent sterilization Total pregnancies: 6 Full term: 6 Number of Living Children: 6 Date of last pap smear: 11/07/22 Date of Mammogram: 06/09/22 Review of Systems Const All systems reviewed & are unremarkable except as noted in HPI and below Card Reports as per HPI Resp Reports as per HPI GI Reports as per HPI and Reports no additional complaints Reports as per HPI Physical Exam Const General: cooperative, healthy appearing and comfortable Chest Chest palpation & inspection: normal inspection of the chest and normal palpation of entire chest wall Breast/axilla inspection: normal inspection of the breasts and normal inspection of the axillae Breast/axilla palpation: normal palpation of the breasts, normal palpation of the axillae and no axillary lymphadenopathy Resp Effort & Inspection: normal respiratory effort Auscultation: clear to auscultation bilaterally Percussion: percussion normal Cardio Palpation: normal PMI Rate: regular rate Rhythm: regular rhythm Heart sounds: no murmurs and no rubs Peripheral pulses: Peripheral pulses 2+ throughout GI Inspection: Yes normal to inspection Palpation (GI): Soft to palpation, nontender, no guarding, not rigid and No hepatosplenomegaly present Percussion: Yes normal to percussion Auscultation: normal bowel sounds Rectal Exam - Female: deferred General: Yes bladder normal to palpation External Female Exam: No lesion Speculum Exam - Vagina: normal appearance of the vagina, normal palpation, normal vaginal discharge and not erythematous Speculum Exam - Cervix: normal appearance of the cervix, normal palpation and Other cervical findings present (0.5 cm endocervical polyp) Bimanual exam- vagina & uterus: normal bimanual exam, normal palpation, uterine size normal, bladder normal to palpation, consistency normal and normal palpation Bimanual Exam- Adnexa, other: normal adnexae, no masses and no tenderness Office Procedures Endometrial Biopsy Details: The patient was counseled regarding the indication and benefits of endometrial sampling to rule out endometrial pathology including not limited to endometrial hyperplasia or endometrial cancer and others; The alternatives (Either do nothing vs. hysteroscopy D&C) & the risks were discussed with the patient including but not limited: pain, uterine perforation, bleeding, infection, possible injury to bladder, bowel, ureter, possible need for blood transfusion with all its possible risks. The patient verbalized understanding all questions answered and signed consent. Urine test done in the office was negative The patient was placed into the dorsal lithotomy position; a speculum was inserted in the vagina. Using aseptic technique for the procedure, the cervix was cleansed with Betadine. The anterior lip of the cervix was grasped with a single tooth tenaculum. The uterus was sounded to 7 cm with a 4 mm Pipelle was used. Endocervical curettage was done afterwards. Tissues samples were obtained and placed in formalin, in a patient labeled container and sent to the pathology department. At the end of the procedure, there was minimal bleeding noted The patient tolerated the procedure well and was discharged in good condition with the following instructions: Nothing in the vagina until the bleeding stops. No sex until the bleeding stops, to call if any of the following occurs: fever (>100.4), flu-like symptoms, abdominal pain, heavy bleeding, four smelling vaginal discharge. The patient was instructed to schedule a Follow up appointment in 2 weeks to discuss pathology results of the biopsy and treatment options. This note was generated with a voice recognition program. Some errors may have been overlooked during the review of this note. Sometimes these errors may affect the content or meaning of a given sentence. 37467-Gdoyvinukkh Biopsy CLOD PULLER Biopsy Before the procedure was started, discussed with the patient the procedure technique, alternatives & all the risks associated with the procedure including but not limited to: bleeding , infection, uterine perforation, injury to bladder, vessels, bowels, possible need for transfusion with all its risks, and others. All questions were answered, the patient verbalized understanding and signed the consent. Urine test done in the office was negative Using a long Joslyn Clamp the endocervical polyp was grasped and twisted around till it came off, hemostasis was secured using pressure. The patient tolerated the procedure well. Instructions were given to the patient to call if bleeding, temp>100.4 occur. The patient verbalized understanding and agreed with the plan. This note was generated with a voice recognition program. Some errors may have been overlooked during the review of this note. Sometimes these errors may affect the content or meaning of a given sentence. 34213-Crxpwd of Cervix Procedure code (CPT) selection complete Assessment & Plan Assessment & Plan (1) Well woman exam: Code(s): Z01.419 - Encounter for gynecological examination (general) (routine) without abnormal findings Plan: Cotesting done. Mammogram ordered. Counseled the patient about the recommended dietary allowance of 1000 mg of Calcium & 600 IU of vitamin D. The patient was instructed to perform monthly self-breast exams and to schedule an annual exam in a year; The patient is in the process of scheduling this GI her screening colonoscopy All questions answered and the patient verbalized understanding. Instructed the patient to schedule annual exam in a year (2) Unexplained endometrial cells on cervical Pap smear: Code(s): R87.618 - Other abnormal cytological findings on specimens from cervix uteri Plan: Discussed with the patient the presence of presence of endometrial cells on Pap smear, recommended EMB and ECC to rule out endometrial/endocervical pathology. EMB/ECC done, see procedure note (3) Endocervical polyp: Code(s): N84.1 - Polyp of cervix uteri Plan: Explained to the patient the finding on pelvic exam, endocervical polyp, recommended polypectomy, Endocervical polypectomy done, see procedure note Orders: Orders AMB CLOD PULLER Biopsy Today N84.1 - Polyp of cervix uteri MM tomosynthesis screening BI Today Z12.31 - Encounter for screening mammogram for malignant neoplasm of breast AMB Endometrial Biopsy Today R87.618 - Other abnormal cytological findings on specimens from cervix uteri Coding Level of Care Code Est Pt Level 3 (42890) Procedure Only Diagnoses Well woman exam Z01.419 Unexplained endometrial cells on cervical Pap smear R87.618 Endocervical polyp N84.1 CPT Codes Endometrial Biopsy - CPT: 44511-[id number] Biopsy ([id number]) CLOD PULLER Biopsy - CPT: 90326-[place] of Cervix ([id number]) Comment ECC/EMB and polypectomy
[2023-12-20 09:01] VITALS: BP 118/72; BMI 39.0
== END 2023-12-20 09:34 | disposition home or self-care (01) ==
LOC: HO.HWS 08:59
PROVIDERS: Visit Provider Obstetrics & Gynecology
DX: Z01.419 Encounter for gynecological examination (general) (routine) without abnormal findings (principal); R87.618 Other abnormal cytological findings on specimens from cervix uteri; N84.1 Polyp of cervix uteri
CPT/HCPCS: 57500; 99396

== ENCOUNTER 2023-12-20 08:59 | Outpatient (REF) | payer OTHER, SELFPAY ==
[2023-12-25 23:02] LABS: HPV mRNA E6/E7 rflx Not Detected (Not Detected)
== END 2023-12-20 09:00 | disposition home or self-care (01) ==
LOC: HO.LNP 08:59
PROVIDERS: Visit Provider Obstetrics & Gynecology
DX: Z01.419 Encounter for gynecological examination (general) (routine) without abnormal findings (principal); N84.1 Polyp of cervix uteri; R87.618 Other abnormal cytological findings on specimens from cervix uteri
CPT/HCPCS: 57500; 87624; 88142; 88305

== ENCOUNTER 2023-12-27 11:12 | Outpatient (AMB) | payer OTHER, SELFPAY ==
[2023-12-27 11:19] VITALS: BP 140/82
--- NOTE | 2023-12-27 11:19 | A.OFFVIS_ITS ---
Intake Vital Signs 12/27/23 11:19 Height 5 ft 4 in BP 140/82 H Intake Visit Reasons: pre op Guide Dog Instructor Required: No Water Filtration Technician: Water Filtration Technician Present Allergies No Known Allergies Allergy (Verified 12/27/23 11:19) Is last menstrual period known: Yes Last menstrual period: 12/13/23 Post menopausal: No Patient : No Do you need a note to return to daycare/school/sports/work: Yes (for surgery on sunday) HPI HPI Comments History of Present Illness Details The patient is presenting after endometrial biopsy. The patient has no complaints, no vaginal bleeding, no feverishness chills or abdominal pain. Endometrial biopsy pathology showed the following: A. Endometrium, biopsy: Benign proliferative endometrium with focal breakdown and features of chronic endometritis, and fragments consistent with benign endometrial polyp; no atypia or carcinoma. B. Endocervix, curettage: Benign endocervical glandular and lower uterine segment mucosa; no atypia or carcinoma. C. Cervical polyp, resection: Benign endometrial polyp with chronic endometritis; no atypia or carcinoma. 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 Reproductive History Menstrual Age of Menarche: 12 Date of last menstrual period: 12/13/23 control method: permanent sterilization Total pregnancies: 2 Full term: 2 Date of last pap smear: 12/24/23 Review of Systems Card Reports as per HPI and Reports no additional complaints Resp Reports as per HPI and Reports no additional complaints GI Reports as per HPI and Reports no additional complaints Reports as per HPI Physical Exam Vital Signs: Last Vital Signs BP 140/82 H 12/27/23 11:19 Const General: cooperative, healthy appearing and comfortable Resp Effort & Inspection: normal respiratory effort Auscultation: clear to auscultation bilaterally Percussion: percussion normal Cardio Palpation: normal PMI Rate: regular rate Rhythm: regular rhythm Heart sounds: no murmurs and no rubs Peripheral pulses: Peripheral pulses 2+ throughout GI Inspection: Yes normal to inspection Palpation (GI): Soft to palpation, nontender, no guarding, not rigid and No hepatosplenomegaly present Percussion: Yes normal to percussion Auscultation: normal bowel sounds Rectal Exam - Female: deferred Assessment & Plan Assessment & Plan (1) Endometrial polyp: Comment: Fragments of endometrial polyp on EMB pathology Code(s): N84.0 - Polyp of corpus uteri Plan: Discussed with the patient the results the EMB pathology showing fragments of endometrial polyp , recommended hysteroscopy D&C possible polypectomy/myomectomy. Discussed with the patient the procedure , all benefits and risks including but not limited to inability to complete the procedure , insufficient endometrial tissue for a complete evaluation of the endometrial cavity , bleeding, infection, possible need for blood transfusion with all its risk ( HIV,syphilis, Hepatitis, anaphylaxis shock, others..), injury to bladder, rectum, possible need for laparoscopy/laparotomy or hysterectomy. The patient verbalized understanding and signed the consent. Instructions given the patient to schedule a 2 week postoperative appointment Coding Level of Care Code Est Pt Level 3 (83470) Diagnoses Endometrial polyp N84.0
== END 2023-12-27 15:02 | disposition home or self-care (01) ==
LOC: HO.HWS 11:12
PROVIDERS: Visit Provider Obstetrics & Gynecology
DX: N84.0 Polyp of corpus uteri (principal)
CPT/HCPCS: 99213

== ENCOUNTER → 2023-12-27 11:12 | Outpatient (BNVA) | payer OTHER, SELFPAY | PROVIDERS: Visit Provider Obstetrics & Gynecology | DX: Z01.818 Encounter for other preprocedural examination (principal); N84.0 Polyp of corpus uteri | CPT/HCPCS: 99212 ==

== ENCOUNTER → 2024-01-07 16:30 | Outpatient (BNV) | payer OTHER, SELFPAY | PROVIDERS: Visit Provider Radiology Diagnostic Radiology | DX: Z12.31 Encounter for screening mammogram for malignant neoplasm of breast (principal) | CPT/HCPCS: 77063; 77067 ==

== ENCOUNTER 2024-01-07 16:39 | Outpatient (REF) | payer OTHER, SELFPAY | END 2024-01-07 16:40 | disposition home or self-care (01) | LOC: HO.MAMMO 16:39 | PROVIDERS: Visit Provider Obstetrics & Gynecology | DX: Z12.31 Encounter for screening mammogram for malignant neoplasm of breast (principal) | CPT/HCPCS: 77063; 77067 ==

== ENCOUNTER 2024-01-16 07:07 | Day surgery (SDC) | payer OTHER, SELFPAY ==
--- NOTE | 2024-01-14 13:44 | HO.ANESPROP2 ---
Documented by User: Amy De Jesus NP 01/14/24 13:44 HPI - Anesthesia Eval Consult details Narrative: 48yo F for D&C Hysteroscopy,possible myomectomy,possible polypectomy PMFSH Active Problems Active Problems: All Active Problems (Updated 12/27/23 @ 11:28 by Gideon Muñiz MD) Endometrial polyp (Acute) Endocervical polyp (Acute) Unexplained endometrial cells on cervical Pap smear (Acute) Encounter for screening colonoscopy (Acute) Well woman exam (Acute) Numbness and tingling in both hands (Acute) Carpal tunnel syndrome of right wrist (Acute) Cervical lesion (Acute) Varicose veins of right lower extremity with inflammation (Acute) Past Medical History Medical History Varicose veins of both lower extremities Depressed Anxiety Sleep apnea Hypertension Family History Family History Paternal Aunt Breast CA Family history of problems with anesthesia: No Surgical History Surgical History Tubal ligation status History of Problems with Anesthesia: No Social History Social History Alcohol intake: never Patient Tobacco Use Status: Never used Tobacco Use of substances other than those prescribed or required for medical reasons: No Are you DNR?: No Advance Directives: No Advance Directives Information Provided: Yes Current occupational status: employed 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 Allergies Allergy/AdvReac Type Severity Reaction Status Date / Time No Known Allergies Allergy Verified 12/27/23 11:19 Home Medications Medication Instructions Recorded Confirmed Last Taken Type tramadol 300 mg capsule 24 300 mg PO DAILY 10/18/20 01/16/24 Unknown History hr,extended release bupropion HCl 200 mg tablet,12 hr 200 mg PO BID 08/18/21 01/16/24 Unknown History sustained-release divalproex 500 mg tablet,extended 500 mg PO DAILY 08/18/21 01/16/24 Unknown History release 24 hr ferrous sulfate 325 mg (65 mg 325 mg PO BID 08/18/21 01/16/24 Unknown History iron) tablet zolpidem 10 mg tablet 10 mg PO BEDTIME PRN Insomnia 08/18/21 01/16/24 Unknown History chlorthalidone 15 mg tablet 15 mg PO DAILY 01/31/23 01/16/24 Unknown History (Thalitone) Assessment and Plan Assessment Anesthesia Assessment: Chart Reviewed Final Anesthetic Review Family History of Problems with Anesthesia: No History of Problems with Anesthesia: No Documented by User: Gwendolyn Berry MD 01/16/24 08:42 PMFSH Active Problems Active Problems: All Active Problems (Updated 01/15/24 @ 08:30 by Gwendolyn Guerrero MD) Endometrial polyp (Acute) Endocervical polyp (Acute) Unexplained endometrial cells on cervical Pap smear (Acute) Encounter for screening colonoscopy (Acute) Well woman exam (Acute) Numbness and tingling in both hands (Acute) Carpal tunnel syndrome of right wrist (Acute) Cervical lesion (Acute) Varicose veins of right lower extremity with inflammation (Acute) ABHI. Uses CPAP Anxiety/ Depression HTN Increased BMI 37.4 Past Medical History Medical History Varicose veins of both lower extremities Depressed Anxiety Sleep apnea Hypertension Family History Family History Paternal Aunt Breast CA Family history of problems with anesthesia: No Surgical History Surgical History Tubal ligation status History of Problems with Anesthesia: No Social History Social History Alcohol intake: never Patient Tobacco Use Status: Never used Tobacco Use of substances other than those prescribed or required for medical reasons: No Are you DNR?: No Advance Directives: No Advance Directives Information Provided: Yes Current occupational status: employed 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 Allergies Allergy/AdvReac Type Severity Reaction Status Date / Time No Known Allergies Allergy Verified 12/27/23 11:19 Home Medications Medication Instructions Recorded Confirmed Last Taken Type tramadol 300 mg capsule 24 300 mg PO DAILY 10/18/20 01/16/24 Unknown History hr,extended release bupropion HCl 200 mg tablet,12 hr 200 mg PO BID 08/18/21 01/16/24 Unknown History sustained-release divalproex 500 mg tablet,extended 500 mg PO DAILY 08/18/21 01/16/24 Unknown History release 24 hr ferrous sulfate 325 mg (65 mg 325 mg PO BID 08/18/21 01/16/24 Unknown History iron) tablet zolpidem 10 mg tablet 10 mg PO BEDTIME PRN Insomnia 08/18/21 01/16/24 Unknown History chlorthalidone 15 mg tablet 15 mg PO DAILY 01/31/23 01/16/24 Unknown History (Thalitone) Exam Height,Weight and Vital Signs: Height 5 ft 5 in Weight 102.058 kg Vital Signs Temp Pulse Resp Pulse Ox O2 Del Method 01/16/24 07:21 96.9 F 69 18 98 Room Air Pertinent Lab Results Pertinent Lab Results: Lab Results 01/16/24 Range/Units 07:20 Urine Test NEGATIVE (NEGATIVE) Airway Mallampati Class: II TM Dist: >3cm Neck ROM: Full Loose/Missing/Broken Teeth: Yes (Many missing teeth bottom. Denies broken or loose teeth) Heart: RRR Lungs: CTAB Assessment and Plan Assessment Anesthesia Assessment: Anesthesia Plan Discussed and Chart Reviewed Final Anesthetic Review Family History of Problems with Anesthesia: No History of Problems with Anesthesia: No NPO: Yes ASA Class: III Final Preanesthetic Review: No Changes in Pt Med Stat, Meds/Allgs Chart Reviewed, Consent Obtained/Reviewed and Anes Risks/Benef Reviewed Patient Risk: Intermediate Procedure Risk: Low Assessment/Block/Sedation in SS: Assess/Block/Sedation-SS Anesthetic Plan Anesthetic Plan: GA Disposition: Standard PACU
[2024-01-16] VITALS (9 sets, daily range): BP systolic 130–158; BP diastolic 72–88; PULSE 52–71; RESP 16–18; TEMP 36.1–36.8; O2SAT 95–100; BMI 37.4
[2024-01-16 07:35] LABS: UPreg QC Valid YES; Urine Pregnancy NEGATIVE (NEGATIVE)
--- NOTE | 2024-01-16 08:19 | MHC.SHP ---
Pre-Procedural Eval Section A - 24 Hr Update-Section A only Date of Service: 01/16/24 The patient is an INPATIENT: No Changes since office visit: No Cold of Flu in the past 2 weeks, No New Medical Problems, No Changes in Medication and No Patient answered all questions The patient has been examined within 24 hours of the surgical procedure. The History & Physical has been completed within 30 days and I have reviewed it.: Yes Section B - Complete if H&P > 30 days Chief Complaint: Polyp of corpus uteri Allergies: Allergies Allergy/AdvReac Type Severity Reaction Status Date / Time No Known Allergies Allergy Verified 12/27/23 11:19 Plan Diagnosis/Plan: Unchanged I have reviewed the history and physical and performed a pertinent physical examination on my patient. No changes have occurred unless specified. Time Spent With Patient Time: Total time managing care of this patient today ____ minutes.
[2024-01-16] MEDS: Lactated Ringers 1,000 ML 100 ML IVCONT (08:38)
--- NOTE | 2024-01-16 09:30 | P.BOP_ITS ---
Brief Operative Note Date of Service: 01/16/24 Pre-op diagnosis: Endometrial polyp on EMB pathology Post-op diagnosis: same (Normal endometrial cavity) Procedure: Hysteroscopy D&C Surgeon: Gideon Muñiz MD Anesthesia: GLMA Was an Career Development Coordinator used for this Procedure?: No Estimated blood loss (mL): 0 Pathology: other (Endometrial Scrapping.) Condition: stable Disposition: PACU
--- NOTE | 2024-01-16 09:31 | W.PM.OPN ---
Operative Note Operative Note Date of Service: 01/16/24 Narrative: Preop Diagnosis: Endometrial polyp on EMB pathology Operation: Diagnostic Hysteroscopy, Dilataion & Curettage Post Op Diagnosis: Normal endometrial and endocervical cavity, no evidence of pathology QBL: Minimal Anesthesia: GLMA Surgeon: Gideon Muñiz MD Commercial Subcontractor: None Complication: None Pathology: Endometrial Scrapings Procedure: The patient was put in the dorsal lithotomy position, scrubbed, and draped in the usual manner. A sterile speculum was inserted in the patient's vagina. The anterior lip of the cervix was grasped with a single tooth tenaculum. The cervix was dilated up to 5 mm, then the scope was inserted in the patient's uterus. Inspection revealed normal endocervical & endometrial cavity with no evidence of pathology. The scope was taken out of the uterine cavity , then sharp curetting was carried on with no complications. At the end of the procedure, all instruments were taken out of the patient uterine and vaginal cavity. The single tooth tenaculum was removed and homeostasis was assured using pressure. The patient tolerated the procedure well and was transferred to the PACU in a stable condition.
[2024-01-16] MEDS: Ketorolac Tromethamine 30 MG/ML VIAL IVPUSH (09:59)
[2024-01-16] MEDS: Acetaminophen 325 MG TABLET 650 MG PO (09:59)
[2024-01-16] MEDS: fentaNYL citrate/PF 100 MCG/2 ML VIAL 25 MCG IVPUSH (10:09)
[2024-01-16] MEDS: oxyCODONE HCl Immed Release 5 MG TABLET PO (10:09)
== END 2024-01-16 11:05 | disposition home or self-care (01) ==
PROVIDERS: Visit Provider Obstetrics & Gynecology
PROC: 0UDB8ZZ Extraction of Endometrium, Via Natural or Artificial Opening Endoscopic (ICD-10-PCS; CPT 58558; principal; 2024-01-16 08:50)
DX: N84.0 Polyp of corpus uteri (principal); N71.1 Chronic inflammatory disease of uterus; Z98.51 Tubal ligation status; I10 Essential (primary) hypertension; I83.93 Asymptomatic varicose veins of bilateral lower extremities; G47.30 Sleep apnea, unspecified; F32.A Depression, unspecified; F41.9 Anxiety disorder, unspecified; Z79.899 Other long term (current) drug therapy; Z98.890 Other specified postprocedural states
CPT/HCPCS: 58558; 81025; 88305; J1100; J1885; J2405; J2704; J3010

== ENCOUNTER → 2024-01-16 07:07 | Outpatient (BNV) | payer OTHER, SELFPAY | PROVIDERS: Visit Provider Obstetrics & Gynecology | DX: N84.0 Polyp of corpus uteri (principal) | CPT/HCPCS: 58558 ==

== ENCOUNTER → 2024-01-30 15:52 | Outpatient (BNVA) | payer OTHER, SELFPAY | PROVIDERS: Visit Provider Obstetrics & Gynecology | DX: R87.618 Other abnormal cytological findings on specimens from cervix uteri (principal); N84.0 Polyp of corpus uteri | CPT/HCPCS: 99212 ==

== ENCOUNTER 2024-02-12 14:40 | Outpatient (REF) | payer OTHER, SELFPAY ==
[2024-02-12 15:57] LABS: MANUAL DIFF FLAG NO
[2024-02-12 16:08] LABS: Basophils Percent Auto 0.5 % (0-2); Eosinophils Absolute Auto 0.2 X10*3/uL (0.0-0.4); Eosinophils Percent Auto 2.3 % (0-4); Hematocrit 30.5 % (37.0-47.0); Hemoglobin 9.6 g/dl (12.0-16.0); Imm Gran Abs Auto 0.02 X10*3/uL (0.00-0.03); Imm Gran Pct Auto 0.3 % (0.0-0.4); Lymphocytes Absolute Auto 2.1 X10*3/uL (1.2-4.9); Lymphocytes Percent Auto 32.9 % (20-40); Mean Corpuscular HGB Conc 31.5 g/dl (31.0-35.0); Mean Corpuscular Hemoglobin 23.2 pg (27.0-33.0); Mean Corpuscular Volume 73.8 fL (80.0-98.0); Mean Platelet Volume 10.8 fL (9.4-12.3); Monocytes Absolute Auto 0.5 X10*3/uL (0.1-1.2); Monocytes Percent Auto 7.9 % (2-11); Neutrophils Absolute Auto 3.6 x10*3/uL (2.0-8.3); Neutrophils Percent Auto 56.1 % (45-73); Platelet Count 356 X10*3/uL (160-400); Red Blood Count 4.13 X10*6/uL (4.20-5.50); Red Cell Distribution Width 15.7 % (11.0-16.0); White Blood Count 6.5 X10*3/uL (4.8-10.8)
[2024-02-12 17:01] LABS: Iron 42 mcg/dL (30-160); Percent Iron Saturation 12 % (15-50); Total Iron Binding Capacity 347 mcg/dL (228-428); Unsaturated Iron Binding 305 ug/dL
[2024-02-12 17:10] LABS: Ferritin 10 ng/mL (10-250)
== END 2024-02-12 14:41 | disposition home or self-care (01) ==
LOC: HO.HHCL 14:40
PROVIDERS: Visit Provider General Practice
DX: D50.0 Iron deficiency anemia secondary to blood loss (chronic) (principal)
CPT/HCPCS: 36415; 82728; 83540; 85025

== ENCOUNTER 2024-10-30 07:30 | Day surgery (SDC) | payer OTHER, SELFPAY ==
[2024-06-17 14:38] VITALS: BMI 40.8
--- NOTE | 2024-10-29 09:29 | P.CONAN_ITS ---
HPI - Anesthesia Eval Consult details Narrative: 48yo F for Colonoscopy PMFSH Active Problems Active Problems: All Active Problems Endometrial polyp (Acute) Endocervical polyp (Acute) Unexplained endometrial cells on cervical Pap smear (Acute) Encounter for screening colonoscopy (Acute) Well woman exam (Acute) Varicose veins of right lower extremity with inflammation (Acute) Cervical lesion (Acute) Carpal tunnel syndrome of right wrist (Acute) Numbness and tingling in both hands (Acute) Past Medical History Medical History (Updated 10/29/24 @ 06:46 by Carmela Martin, RN) ABHI (obstructive sleep apnea) Varicose veins of both lower extremities Depressed Anxiety Sleep apnea Hypertension Family History Family History Paternal Aunt Breast CA Family history of problems with anesthesia: No Surgical History Surgical History (Updated 06/17/24 @ 14:33 by Peg Story RN) Hx of dilation and curettage History of loop electrical excision procedure (LEEP) Tubal ligation status History of Problems with Anesthesia: No Social History Social History Alcohol intake: never Patient Tobacco Use Status: Never used Tobacco Current occupational status: employed 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 Allergies Allergy/AdvReac Type Severity Reaction Status Date / Time No Known Allergies Allergy Verified 12/27/23 11:19 Home Medications ?Medication ?Instructions ?Recorded ?Confirmed ?Last Taken ?Type tramadol 300 mg capsule 24 300 mg PO DAILY 10/18/20 06/17/24 Unknown History hr,extended release bupropion HCl 200 mg tablet,12 hr 200 mg PO BID 08/18/21 06/17/24 Unknown History sustained-release divalproex 500 mg tablet,extended 500 mg PO DAILY 08/18/21 06/17/24 Unknown History release 24 hr ferrous sulfate 325 mg (65 mg 325 mg PO BID 08/18/21 06/17/24 Unknown History iron) tablet zolpidem 10 mg tablet 10 mg PO BEDTIME PRN Insomnia 08/18/21 06/17/24 Unknown History chlorthalidone 15 mg tablet 15 mg PO DAILY 01/31/23 06/17/24 Unknown History (Thalitone) Exam Height,Weight and Vital Signs: Height 5 ft 4 in Weight 107.955 kg Assessment and Plan Assessment Anesthesia Assessment: Chart Reviewed Final Anesthetic Review Family History of Problems with Anesthesia: No History of Problems with Anesthesia: No
[2024-10-30 07:42] VITALS: BP 154/76; PULSE 78; RESP 18; TEMP 36.9; O2SAT 97; BMI 41.0
--- NOTE | 2024-10-30 08:03 | MHC.SHP ---
Pre-Procedural Eval Section A - 24 Hr Update-Section A only Date of Service: 10/30/24 Section B - Complete if H&P > 30 days Chief Complaint: screening Relevant Family History (Specify if Yes): No Relevant Social History: None Present Medications: see Short Stay Collaborative assessment Medical History: Significant History (ABHI (obstructive sleep apnea) Varicose veins of both lower extremities Depressed Anxiety Sleep apnea Hypertension) History of Previous Operations: Relevant previous surgery/procedure and date(s) (Hx of dilation and curettage History of loop electrical excision procedure (LEEP) Tubal ligation status) Allergies: Allergies Allergy/AdvReac Type Severity Reaction Status Date / Time No Known Allergies Allergy Verified 12/27/23 11:19 Review of Systems Sugical H&P ROS: Negative: Constitution, Cardiovascular, Respiratory, Neurological, Psychiatric, Hem-Onc, Allergic/Immunologic, Gastrointestinal, Genitourinary, Musculoskeletal, Integumentary, Endocrine and Eyes/Ears/Nose/Throat Exam Surgical H&P Exam: Normal: HEENT, Normal: Heart, Normal: Lungs, Normal: Extremities, Normal: Abdomen, Normal: Skin and Normal: Neurological Plan Diagnosis/Plan: Unchanged I have reviewed the history and physical and performed a pertinent physical examination on my patient. No changes have occurred unless specified. Time Spent With Patient Time: Total time managing care of this patient today ____ minutes.
[2024-10-30] MEDS: Lactated Ringers 1,000 ML 100 ML IVCONT (08:06)
--- NOTE | 2024-10-30 08:35 | HO.OPN-COLON ---
Colonoscopy Operative Note Operative Note Date of Service: 10/30/24 Narrative: Operative Information Procedure Description: Colonoscopy Indication: screening Anesthesia: MAC COLONOSCOPY Instrument: Olympus variable stiffness pediatric scope 190L Colonoscopy Monitoring: Vital signs and clinical assessment, continuous EKG monitoring, Pulse oximetry, Carbon Dioxide monitoring and blood pressure monitoring were done throughout the procedure. Colon withdrawal time was 13 minutes. Procedure: The patient was placed in the left lateral decubitis position and pre-procedure medications were administered. After a digital rectal examination of the ano-rectum, the video colonoscope was inserted into the rectum and advanced through the colon to the cecum/TI. The colonoscope was slowly withdrawn in a retrograde panoramic fashion and the colon mucosa was carefully examined including a retroflexed view of the rectum. Findings and interventions are described below. Procedure Difficulty: easy Findings: Terminal Ileum-normal Cecum:normal Right sided retroflexion- normal Ascending Colon: normal Transverse Colon -normal Descending Colon:normal Sigmoid Colon: normal Rectum: Retroflexion with small internal hemorrhoids seen, grade I Anorectum - normal Intervention: none Colon preparation: [place] Bowel Preparation Scale Right colon; 2 Transverse colon: 2 Left colon; 2 (0 = Unprepared colon segment with mucosa not seen due to solid stool that cannot be cleared. 1 = Portion of mucosa of the colon segment seen, but other areas of the colon segment not well seen due to staining, residual stool and/or opaque liquid. 2 = Minor amount of residual staining, small fragments of stool and/or opaque liquid, but mucosa of colon segment seen well. 3 = Entire mucosa of colon segment seen well with no residual staining, small fragments of stool or opaque liquid) Impression and Post Procedure Diagnosis: internal hemorrhoids Plan: High fiber diet leaflet Avoid straining at stool, epsom salts and sitz bath, anusol supps or cream Repeat Colonoscopy in 10 years or earlier if clinically indicated Above findings were reviewed with the patient and relevant handouts were provided if indicated.
[2024-10-30 08:40] VITALS: BP 104/53; PULSE 82; RESP 18; TEMP 36.2; O2SAT 97
[2024-10-30 08:55] VITALS: BP 138/74; PULSE 72; RESP 16; O2SAT 100
[2024-10-30 09:10] VITALS: BP 148/81; PULSE 63; RESP 16; TEMP 36.3; O2SAT 100
== END 2024-10-30 09:26 | disposition home or self-care (01) ==
PROVIDERS: PCP General Practice; Visit Provider Internal Medicine Gastroenterology
PROC: 0DJD8ZZ Inspection of Lower Intestinal Tract, Via Natural or Artificial Opening Endoscopic (ICD-10-PCS; CPT 45378; principal; 2024-10-30 08:20)
DX: Z12.11 Encounter for screening for malignant neoplasm of colon (principal); K64.0 First degree hemorrhoids; I10 Essential (primary) hypertension; G47.33 Obstructive sleep apnea (adult) (pediatric); I83.93 Asymptomatic varicose veins of bilateral lower extremities; F32.A Depression, unspecified; F41.9 Anxiety disorder, unspecified; Z79.899 Other long term (current) drug therapy; Z98.890 Other specified postprocedural states
CPT/HCPCS: G0121; J2003; J2704

== ENCOUNTER → 2024-10-30 07:30 | Outpatient (BNV) | payer OTHER, SELFPAY | PROVIDERS: PCP General Practice; Visit Provider Internal Medicine Gastroenterology | DX: Z12.11 Encounter for screening for malignant neoplasm of colon (principal); K64.0 First degree hemorrhoids | CPT/HCPCS: G0121 ==

== ENCOUNTER 2025-06-09 12:24 | Outpatient (REF) | payer OTHER, SELFPAY ==
--- NOTE | ~2025-06-09 | XR_ITS ---
EXAMINATION: XR LUMBOSACRAL SPINE CLINICAL INFORMATION: pain with going up stairs COMPARISON: None available. TECHNIQUE: Three views of the lumbosacral spine. FINDINGS: There is mild convex left curvature of the lumbar spine. There is anatomic alignment otherwise. There are 5 nonrib-bearing lumbar segments. L4-5 demonstrates mild disc space narrowing. Disc spaces are preserved otherwise. Vertebral body height is preserved. XR/XR lumbar spine 2-3V IMPRESSION: L4-5 demonstrates mild disc space narrowing. Electronically signed by: Ehpraim Godinez MD 06/09/2025 01:02 PM EDT
--- NOTE | ~2025-06-09 | XR_ITS ---
EXAMINATION: XR KNEE 3 VIEWS LEFT HISTORY: pain with going up stairs COMPARISON: Comparison is made with the prior examination dated 03/06/2019. FINDINGS: Three views of the left knee are submitted. Osseous mineralization is normal. There is no fracture or dislocation. There is mild narrowing of the medial compartment. The soft tissues are unremarkable. There is no joint effusion. XR/XR knee LT 3V IMPRESSION: Mild narrowing of the medial compartment. Electronically signed by: Crow Anderson MD 06/09/2025 01:01 PM EDT
--- OUTSIDE RECORDS SUMMARY | 2025-06-09 13:16 | XMS_ITS | Clinical Summary ---
Author Organization [facility] Address [address] [place], [place] [id number] Phone Care Team Providers Care Cushion Filler Name Role Phone Melia Colunga MD Primary Care Provider + Social History Tobacco Use Types Packs/Day Years Used Date Smoking Tobacco: Never Assessed Education Answer Date Recorded Are you interested in more education? Not on rob e 10/30/2024 Are you concerned about learning? Not on file 10/30/2024 No 10/30/2024 No 10/30/2024 Digital Access Answer Date Recorded No 10/30/2024 No 10/30/2024 Reliable internet access at home? Not on file 10/30/2024 Device with a working camera? Not on file Comments Unknown Sex and Gender Information Value Date Recorded Sex Assigned at Not on file Legal Sex Female 9:11 AM EST Gender Identity Not on file Sexual Orientation Not on file Plan of Treatment Not on file Medical Devices Not on file Insurance [facility] ONE CARE MEDICARE REPLACEMENT [facility] MEDICARE PART A & B Member Subscriber Plan / Payer (Ef fective 2011-Present) Name:BentleyTres tsai Member ID:[id number] Relation to Subscriber:Self Name:Tres Bentley Subscriber ID:[id number] Payer ID:[id number] Group ID:Not on file Type:Medicare Address: [employer] [id number] MEDICARE PART A & [place] [address] [address] CARE MEDICARE REPLACEMENT MEDICARE PART A & B ONE CARE MEDICARE REPLACEMENT MEDICARE PART A & B [address] [address] CARE MEDICARE REPLACEMENT MEDICARE PART A & B [address] [address] CARE MEDICARE REPLACEMENT MEDICARE PART A & B Care Teams Cushion Filler Relationship Specialty Start Date End Date Melia Colunga MD PCP - General Family Medicine 10/30/24 Additional Source Comments The information contained in this document represents components of the legal health record. It is not the complete legal health record.[facility]
--- OUTSIDE RECORDS SUMMARY | 2025-06-09 13:16 | XMS_ITS | Encounter Summary ---
Author Organization [facility] Address [address] [place] [id number] Phone Care Team Providers Care Illusionist Name Role Phone Melia Colunga MD Primary Care Provider + Encounter Details Date Type Department Care Team (Late st Contact Info) Description 11/25/2024 Procedure Pass [facility] Endoscopy Admitting Dept Virtual Department [address] [place] [address] Social History Tobacco Use Types Packs/Day Years [...] on file Sexual Orientation Not on file documented as of this encounter Plan of Treatment Not on file documented as of this encounter Visit Diagnoses Not on filedocumented in this encounter Care Teams Illusionist Relationship Specialty Start Date End Date Melia Colunga MD PCP - General Family Medicine 10/30/24 documented as of this encounter Additional Source Comments The information contained in this document represents components of the legal health record. It is not the complete legal health record.[facility]
== END 2025-06-09 12:25 | disposition home or self-care (01) ==
LOC: HO.HHCX 12:24
PROVIDERS: Visit Provider General Practice
DX: M25.562 Pain in left knee (principal); M54.41 Lumbago with sciatica, right side
CPT/HCPCS: 72100; 73562

== ENCOUNTER → 2025-06-09 12:24 | Outpatient (BNV) | payer OTHER, SELFPAY | PROVIDERS: Visit Provider Radiology Diagnostic Radiology | DX: M54.50 Low back pain, unspecified (principal); M25.562 Pain in left knee | CPT/HCPCS: 72100; 73562 ==

== ENCOUNTER 2025-09-01 15:25 | Outpatient (AMB) | payer OTHER, SELFPAY ==
--- NOTE | 2025-09-01 15:29 | A.OFFVIS_ITS ---
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 Patient has a history of a vein procedure in October2021. She states her left leg is giving her issues now. Walking up and down stairs is becoming an issue. Veins are itchy as well. 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 She has a history of a right leg microphlebectomy performed in October 2021. She now reports new symptoms in the left leg, including swelling, pain, and itching, localized to the posterior thigh and calf. She recalls being advised to use compression stockings in the past. It has been affecting there daily activities including walking. It is noted more so in left leg. Patient has previous right leg microphlebectomy Patient denies any history of DVT/ PE. Patient denies any history of phlebitis. Trial of compression includes - prescription for the last 3 year They now present for vascular evaluation regarding their varicose veins. 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 Reproductive History Menstrual Age of Menarche: 12 Review of Systems Const Reports as per HPI ENT Reports no additional complaints Card Denies chest pain, Denies chest pain at rest and Denies chest pain with activity Resp Denies chest congestion and Denies cough GI Reports no additional complaints Musc Details: pain over varicosities, aching of lower extremities, swelling, cramping, heaviness and tiredness, itching Denies abnormal gait Skin/Breast Reports pruritus and Denies wounds Neuro Reports no additional complaints and Denies abnormal gait Psych Denies no additional complaints Physical Exam Const General: cooperative, healthy appearing and comfortable Orientation/consciousness: oriented to person, oriented to place and oriented to time Neck Carotids: no bruits Chest Chest palpation & inspection: normal inspection of the chest and normal palpation of entire chest wall Resp Effort & Inspection: normal respiratory effort and able to speak in complete sentences Cardio Rate: regular rate Heart sounds: S1 normal heart sound present and S2 normal heart sound present Peripheral pulses: Peripheral pulses 2+ throughout GI Inspection: Yes normal to inspection Skin Other: +2 edema, large rope-like varicosities greater than 4 mm CEAP Classification C4 - skin color changes Ep - Etiology Primary As - superficial veins P - reflux General skin exam: dry skin Neuro General: oriented to person, oriented to place and oriented to time Extrem Right lower extremity: full ROM, normal capillary refill and edema Left lower extremity: full ROM, normal capillary refill and edema Psych Mental Status: mental status grossly normal Assessment & Plan Assessment & Plan (1) Varicose veins of right lower extremity with inflammation: Comment: 11/04/2021 - right leg microphlebectomy Code(s): I83.11 - Varicose veins of right lower extremity with inflammation Category: Medical Plan: Doing well but does have recurrent swelling. Will assess both legs with venous insufficiency testing. (2) Varicose veins of left lower extremity with inflammation: Code(s): I83.12 - Varicose veins of left lower extremity with inflammation Category: Medical Plan: In short, the patient has evidence of venous insufficiency. I have discussed the pathophysiology with the patient. In addition I have provided informational material regarding venous disease to the patient. We have discussed conservative measures including compression, elevation, and exercise. I have also provided a handout regarding appropriate use of compression stockings and where to purchase good compression stockings as well. I have taken the liberty of ordering venous insufficiency testing with the patient. They will follow up with me after testing. The patient had an opportunity to ask questions regarding the treatment plan. All questions were answered. Imaging studies, laboratory studies and physical exam results were discussed and reviewed in detail. No major barriers to understanding were identified. The patient expressed understanding and agreement with the above treatment plan. The patient is aware they should contact our office by phone for worsening of the current condition or the appearance of new symptoms. Thank you for allowing me to participate in the vascular care of this patient. If you have any questions or concerns regarding the treatment for the above condition please do not hesitate to contact me. The office telephone contact is [phone]. This note is constructed using voice recognition software. While every effort has been made to ensure accuracy, logistics lead errors may have been included. Thank you for allowing me to participate in the care of your patient. Yours sincerely, Rudy Hawk MD, FACS, R.P.V.I. Orders: Orders US venous duplex LE BI Today I83.12 - Varicose veins of left lower extremity with inflammation Coding Level of Care Code New Pt Level 4 (98823) Diagnoses Varicose veins of right lower extremity with inflammation I83.11 Varicose veins of left lower extremity with inflammation I83.12
== END 2025-09-01 15:56 | disposition home or self-care (01) ==
LOC: HO.HVS 15:26
PROVIDERS: Visit Provider Surgery Vascular Surgery
DX: I83.11 Varicose veins of right lower extremity with inflammation (principal); I83.12 Varicose veins of left lower extremity with inflammation
CPT/HCPCS: 99204

== ENCOUNTER → 2025-09-01 15:25 | Outpatient (BNVA) | payer OTHER, SELFPAY | PROVIDERS: Visit Provider Surgery Vascular Surgery | DX: I83.12 Varicose veins of left lower extremity with inflammation (principal); I83.11 Varicose veins of right lower extremity with inflammation | CPT/HCPCS: 99202 ==

== ENCOUNTER 2025-09-30 13:14 | Outpatient (REF) | payer OTHER, SELFPAY ==
--- NOTE | ~2025-09-30 | US_ITS ---
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 TECHNIQUE: Color flow triplex imaging and compression Doppler was performed to evaluate both the deep and the superficial systems bilaterally. To evaluate the superficial system, the examination was performed in the reverse Trendelenburg position. Color-flow Doppler ultrasound and compression ultrasound were utilized. In addition, maneuvers were utilized to demonstrate reflux. FINDINGS: 1. DEEP VENOUS ULTRASOUND OF THE RIGHT LOWER EXTREMITY: Common Femoral Vein: Compressible, normal respiratory variation and augmented flow. Femoral Vein: Compressible, normal color flow and augmentation. Popliteal Vein: Compressible, normal augmentation. Deep Reflux: There is no evidence of reflux in the deep system in either the common femoral vein, superficial femoral or the popliteal vein. There is no evidence of a Dobson's cyst. 2. SUPERFICIAL ULTRASOUND WITH DOPPLER OF RIGHT LOWER EXTREMITY: GREAT SAPHENOUS VEIN: Saphenofemoral Junction: 0.5 cm; Reflux: 0 ms Proximal Thigh: 0.4 cm; Reflux: 0 ms Mid Thigh: 0.4 cm; Reflux: 0 ms Distal Thigh: 0.4 cm; Reflux: 0 ms At Knee: 0.3 cm; Reflux: 0 ms Proximal Calf: 0.3 cm; Reflux: 0 ms Mid Calf: 0.3 cm; Reflux: 0 ms Distal Calf: 0.3 cm; Reflux: 0 ms DUPLICATED MEDIAL GREAT SAPHENOUS VEIN: Diameter: None imaged Reflux: NA DUPLICATED LATERAL GREAT SAPHENOUS VEIN: Diameter: 0.3-0.5 Reflux: NA SMALL SAPHENOUS VEIN: Saphenopopliteal Junction: 0.3 cm; Reflux: 0 ms Proximal: 0.2 cm; Reflux: 0 ms Distal: 0.3 cm; Reflux: 0 ms VEIN OF GIACOMINI: Size: 0.2 cm Reflux: NA PERFORATORS: Location: The mid and distal thigh and proximal calf Size: 0.1 to 0.3 cm Reflux: NA VARICOSITIES: Location: Popliteal fossa and proximal and mid calf Size: 0.3 to 0.4 cm Reflux: Seen in all varicosities, up to greater than 3.1 seconds 3. DEEP VENOUS ULTRASOUND OF THE LEFT LOWER EXTREMITY: Common Femoral Vein: Compressible, normal respiratory variation and augmented flow. Femoral Vein: Compressible, normal color flow and augmentation. Popliteal Vein: Compressible, normal augmentation. Deep Reflux: There is no evidence of reflux in the deep system in either the common femoral vein, superficial femoral or the popliteal vein. There is no evidence of a Dobson's cyst. 4. SUPERFICIAL ULTRASOUND WITH DOPPLER OF LEFT LOWER EXTREMITY: GREAT SAPHENOUS VEIN: Saphenofemoral Junction: 1.1 cm; Reflux: 0 ms Proximal Thigh: 0.4 cm; Reflux: 0 ms Mid Thigh: 0.4 cm; Reflux: 0 ms Distal Thigh: 0.4 cm; Reflux: 0 ms At Knee: 0.4 cm; Reflux: 0 ms Proximal Calf: 0.3 cm; Reflux: 0 ms Mid Calf: 0.3 cm; Reflux: 0 ms Distal Calf: 0.2 cm; Reflux: 0 ms DUPLICATED MEDIAL GREAT SAPHENOUS VEIN: Diameter: 0.2 to 0.3 cm Reflux: NA DUPLICATED LATERAL GREAT SAPHENOUS VEIN: Diameter: 0.3 to 0.4 cm Reflux: NA SMALL SAPHENOUS VEIN: Saphenopopliteal Junction: 0.3 cm; Reflux: 0 ms Proximal: 0.3 cm; Reflux: 0 ms Distal: 0.2 cm; Reflux: 0 ms VEIN OF GIACOMINI: Size: NA Reflux: NA PERFORATORS: Location: Calf Size: 0.1 to 0.3 cm Reflux: NA VARICOSITIES: Location: Calf and lateral ankle Size: 0.2 to 0.3 cm Reflux: NA US/US venous duplex LE BI IMPRESSION: Right: No evidence of DVT or deep venous reflux. Normal caliber greater and lesser saphenous veins without reflux. Varicosities behind the knee and in the calf with reflux, greatest greater than 3.1 seconds Left: No evidence of DVT or deep venous reflux. Normal caliber greater and lesser saphenous veins without reflux. Varicosities and perforators in the calf without reflux. Electronically signed by: Rachael Bangura MD 09/30/2025 02:20 PM [facility]
--- OUTSIDE RECORDS SUMMARY | 2025-09-30 17:25 | XMS_ITS | Encounter Summary ---
Author Organization [facility] Address [address] [place] [id number] Phone Care Team Providers Care School Psychology Specialist Name Role Phone Melia Colunga MD Primary Care Provider + Encounter Details Date Type Department Care Team (Late st Contact Info) Description 11/25/2024 Procedure Pass [facility] Endoscopy Admitting Dept Virtual Department [address] [place] [address] Social History Tobacco Use Types Packs/Day Years [...] on filedocumented in this encounter Care Teams School Psychology Specialist Relationship Specialty Start Date End Date Melia Colunga MD PCP - General Family Medicine 10/30/24 documented as of this encounter Additional Source Comments The information contained in this document represents components of the legal health record. It is not the complete legal health record.[facility]
--- OUTSIDE RECORDS SUMMARY | 2025-09-30 17:25 | XMS_ITS | Clinical Summary ---
Author Organization [facility] Address [address] [place], [place] [id number] Phone Care Team Providers Care Recycling Collections Driver Name Role Phone Melia Colunga MD Primary [...] file Medical Devices Not on file Insurance [facility] ONE CARE MEDICARE REPLACEMENT [facility] MEDICARE PART A & B Member Subscriber Plan / Payer (Ef fective 2011-Present) Name:BentleyTres tsai Member ID:[id number] Relation to Subscriber:Self Name:Tres Bentley Subscriber ID:[id number] Payer ID:[id number] Group ID:Not on file Type:Medicare Address: [employer] [id number] MEDICARE PART A & [place] [address] CARE MEDICARE REPLACEMENT MEDICARE PART A & B ONE CARE MEDICARE REPLACEMENT MEDICARE PART A & [place] [address] [place] [address] CARE MEDICARE REPLACEMENT MEDICARE PART A & [place] [address] CARE MEDICARE REPLACEMENT MEDICARE PART A & B Care Teams Recycling Collections Driver Relationship Specialty Start Date End Date Melia Colunga MD PCP - General Family Medicine 10/30/24 Additional Source Comments The information contained in this document represents components of the legal health record. It is not the complete legal health record.[facility]
== END 2025-09-30 13:15 | disposition home or self-care (01) ==
LOC: HO.US 13:14
PROVIDERS: PCP General Practice; Visit Provider Surgery Vascular Surgery
DX: I83.12 Varicose veins of left lower extremity with inflammation (principal)
CPT/HCPCS: 93970

== ENCOUNTER → 2025-09-30 13:17 | Outpatient (BNV) | payer OTHER, SELFPAY | PROVIDERS: PCP General Practice; Visit Provider Radiology Diagnostic Radiology | DX: I83.12 Varicose veins of left lower extremity with inflammation (principal) | CPT/HCPCS: 93970 ==